=== PATIENT | male | born 1950 | race Hispanic/Latino ===

== ENCOUNTER 2022-05-29 14:56 | Outpatient (CLI) | payer MEDICARE, OTHER | END 2022-05-29 14:57 | disposition home or self-care (01) | LOC: BICRAD 14:56 | PROVIDERS: ATTEND Family Medicine | DX: M53.3 Sacrococcygeal disorders, not elsewhere classified (principal); M25.532 Pain in left wrist; R05.3 Chronic cough; M47.816 Spondylosis without myelopathy or radiculopathy, lumbar region; M47.817 Spondylosis without myelopathy or radiculopathy, lumbosacral region; M25.78 Osteophyte, vertebrae; M19.042 Primary osteoarthritis, left hand | CPT/HCPCS: 71046; 72100; 72220 ==

== ENCOUNTER 2022-06-19 07:48 | Observation (INO) | payer OTHER ==
[2022-06-19] MEDS ORDERED: Ketorolac Tromethamine 30 MG/ML VIAL ONE (08:18)
[2022-06-19] MEDS ORDERED: Dexamethasone 10 MG/ML VIAL ONE (08:18)
[2022-06-19 09:13] LABS: #Basophils 0.1 thou/uL (0.0-0.2); #Eosinphils 0.3 thou/uL (0.0-0.7); #Lymphocytes 2.4 thou/uL (1.20-3.40); #Monocytes 0.9 thou/uL (0.11-0.59); #Neutrophils 4.7 thou/uL (1.40-6.50); %Basophils 0.6 % (0.0-1.0); %Lymphocytes 29.1 % (21.0-51.0); %Monocytes 10.2 % (0.0-10.0); Hemoglobin 13.9 g/dL (14.0-18.0); Mean Corpuscular Hemoglobin 28.5 pg (27.0-31.0); Mean Corpuscular Volume 83.8 fl (78.0-98.0); Mean Platelet Volume 7.9 fL (7.4-10.4); Platelet Count 239 10x3/uL (130-400); RBC Distribution Width 12.5 % (11.5-14.5); Red Blood Cell (RBC) Count 4.87 mill/uL (4.70-6.10); White Blood Cell (WBC) Count 8.3 10x3/uL (4.8-10.8)
[2022-06-19] MEDS ORDERED: Morphine 4 MG/ML VIAL ONE (09:20)
[2022-06-19] MEDS ORDERED: Ondansetron PF 4 MG/2 ML Vial ONE (09:20)
[2022-06-19 09:34] LABS: ALT (SGPT) 26 U/L (8-55); AST (SGOT) 23 U/L (5-34); Albumin 3.8 g/dL (3.4-4.8); Alkaline Phosphatase 91 U/L (40-110); Anion Gap 11 mmol/L (10-20); BUN (Urea Nitrogen) 17 mg/dL (8.4-25.7); Bilirubin, Total 0.3 mg/dL (0.2-1.2); Calc. Creatinine Clearance 0 mL/min (70-130); Carbon Dioxide 21 mmol/L (23-31); Chloride 109 mmol/L (98-107); Estimated GFR 95; Globulin 3.4 g/dL (2.4-3.5); Glucose 115 mg/dL (83-110); Potassium 4.2 mmol/L (3.5-5.1); Protein, Total 7.2 g/dL (5.8-8.1); Sodium 137 mmol/L (136-145)
[2022-06-19] MEDS ORDERED: Morphine 2 MG/ML VIAL ONE (11:35)
[2022-06-19 12:44] VITALS: BMI 25.1
[2022-06-19] MEDS ORDERED: Cyclobenzaprine 10 MG TAB PO PRN (13:01)
[2022-06-19] MEDS ORDERED: CeleCOXIB 100 MG CAP PO PRN (13:07)
[2022-06-19] MEDS ORDERED: Acetaminophen 500 MG TAB PO PRN (13:08)
[2022-06-19] MEDS ORDERED: HYDROcodone/Acetaminophen 5/325 mg Tablet PO PRN (13:51)
[2022-06-19] MEDS ORDERED: Calcium Carbonate 500 MG ChewTAB PO PRN (14:07)
[2022-06-19 17:16] VITALS: BP 170/68; TEMP 98
[2022-06-19] MEDS ORDERED: Transdermal Patch Removal TOP SCH (21:00)
[2022-06-20] MEDS ORDERED: Lidocaine 4% Patch TD SCH (09:00)
== END 2022-06-19 17:16 | disposition home or self-care (01) ==
LOC: ERS 07:48 → T4-A 12:31
PROVIDERS: ADMIT Student in an Organized Health Care Education/Training Program; ATTEND Student in an Organized Health Care Education/Training Program
DX: M51.36 Other intervertebral disc degeneration, lumbar region (principal); M51.26 Other intervertebral disc displacement, lumbar region; M48.061 Spinal stenosis, lumbar region without neurogenic claudication; M51.37 Other intervertebral disc degeneration, lumbosacral region; M51.27 Other intervertebral disc displacement, lumbosacral region; M48.07 Spinal stenosis, lumbosacral region
CPT/HCPCS: 36415; 72131; 72148; 80053; 85025; 85610; 85652; 85730; 86140; 96372; 96374; 96375; 96376; G0378; J1100; J1885; J2270; J2272; J2405

== ENCOUNTER 2022-10-01 13:26 | Outpatient (CLI) | payer OTHER | END 2022-10-01 13:27 | disposition home or self-care (01) | LOC: DTY/OP 13:26 | PROVIDERS: ATTEND Family Medicine | DX: E11.9 Type 2 diabetes mellitus without complications (principal) | CPT/HCPCS: 97802 ==

== ENCOUNTER 2022-11-04 08:02 | Outpatient (CLI) | payer OTHER | END 2022-11-04 08:03 | disposition home or self-care (01) | LOC: ULT 08:02 | PROVIDERS: ATTEND Family Medicine | DX: Z12.2 Encounter for screening for malignant neoplasm of respiratory organs (principal); I77.811 Abdominal aortic ectasia; I70.0 Atherosclerosis of aorta; Z87.891 Personal history of nicotine dependence | CPT/HCPCS: 71271; 76775 ==

== ENCOUNTER 2023-11-09 15:26 | Outpatient (CLI) | payer OTHER, MEDICAID ==
[2023-11-09 16:10] LABS: #Basophils 0.04 10x3/uL (0.0-0.2); %Basophils 0.6 % (0.0-1.0); %Eosinophils 1.7 % (0.0-10.0); %Lymphocytes 30.3 % (21.0-51.0); %Monocytes 8.5 % (0.0-10.0); %Neutrophils 58.5 % (42.0-75.0); Hematocrit 43.2 % (42.0-52.0); Hemoglobin 14.1 g/dL (14.0-18.0); Mean Corpuscular HGB CONC 32.6 g/dL (32.0-36.0); Mean Corpuscular Hemoglobin 26.9 pg (27.0-31.0); Mean Corpuscular Volume 82.4 fL (78.0-98.0); Mean Platelet Volume 10.3 fL (7.4-10.4); Platelet Count 240 10x3/uL (130-400); RBC Distribution Width 13.5 % (11.5-14.5); Red Blood Cell (RBC) Count 5.24 mill/uL (4.70-6.10)
[2023-11-09 16:56] LABS: ALT (SGPT) 31 U/L (8-55); AST (SGOT) 22 U/L (5-34); Albumin 3.6 g/dL (3.4-4.8); Alkaline Phosphatase 110 U/L (40-110); Anion Gap 11 mmol/L (10-20); BUN (Urea Nitrogen) 11 mg/dL (8.4-25.7); Bilirubin, Total 0.7 mg/dL (0.2-1.2); Calc. Creatinine Clearance 0 mL/min (70-130); Calcium 8.8 mg/dL (7.8-10.44); Carbon Dioxide 25 mmol/L (23-31); Chloride 107 mmol/L (98-107); Estimated GFR 95; Globulin 3.7 g/dL (2.4-3.5); Glucose 145 mg/dL (83-110); Potassium 3.8 mmol/L (3.5-5.1); Protein, Total 7.3 g/dL (5.8-8.1); Sodium 139 mmol/L (136-145)
== END 2023-11-09 15:27 | disposition home or self-care (01) ==
LOC: LABBT 15:26
PROVIDERS: ATTEND Internal Medicine Cardiovascular Disease
DX: Z01.812 Encounter for preprocedural laboratory examination (principal); R06.00 Dyspnea, unspecified
CPT/HCPCS: 80053; 85025

== ENCOUNTER 2023-11-10 09:08 | Day surgery (SDC) | payer OTHER, MEDICAID ==
[2023-11-09 15:58] VITALS: BMI 25.8
[2023-11-10] MEDS ORDERED: Heparin 10,000 UNITS/ 10 ML VIAL ONE (11:12)
[2023-11-10] MEDS ORDERED: Verapamil 5 MG/2 ML VIAL ONE (11:12)
[2023-11-10] MEDS ORDERED: Adenosine 6 mg (2 mL) VIAL ONE (11:12)
[2023-11-10] MEDS ORDERED: Nitroglycerin 50 MG/250 ML BOT 0 ML ONE (11:13)
[2023-11-10] MEDS ORDERED: fentaNYL 50 mcg/mL 1 mL Vial ONE (11:19)
[2023-11-10] MEDS ORDERED: Iopamidol 370 76% 100 ML VIAL ONE (11:20)
[2023-11-10] MEDS ORDERED: Midazolam HCl 2 mg/2 ml Vial ONE (11:20)
== END 2023-11-10 16:20 | disposition home or self-care (01) ==
LOC: CCL 09:08 → EEVIPCON 09:08 → CCL 16:20
PROVIDERS: ATTEND Internal Medicine Cardiovascular Disease
PROC: 4A023N7 Measurement of Cardiac Sampling and Pressure, Left Heart, Percutaneous Approach (ICD-10-PCS; principal; 2023-11-10)
DX: I25.5 Ischemic cardiomyopathy (principal); F17.210 Nicotine dependence, cigarettes, uncomplicated
CPT/HCPCS: 93458; C1769; C1887; C1894; J2250; J3010; 99152; J0153; J1644